=== PATIENT | female | born 1980 | race Two or more races ===

== ENCOUNTER 2024-07-24 10:23 | Outpatient (AMB) | payer MEDICAID, SELFPAY ==
[2024-07-24 10:45] VITALS: BP 143/91; PULSE 77; RESP 18; TEMP 36.4; O2SAT 97; BMI 39.2
--- NOTE | 2024-07-24 10:45 | ORTHONT_ITS ---
Vital signs 07/24/24 10:45 Height 1.65 m Height Method Stated Weight 107.076 kg Weight Measurement Method Standing Scale BMI 39.2 BP 143/91 H Blood Pressure Source Automatic Cuff Blood Pressure Location Left Upper Arm Position Sitting Respiration 18 Pulse 77 Pulse Source Monitor Temp 97.6 F Temp Source Temporal Artery Scan Pulse Oximetry (%) 97 Oxygen Delivery Method Room Air Med/Allergies Allergies & Medications Allergies No Known Drug Allergies Allergy (Verified 07/24/24 10:46) Medication Reconciliation Unobtainable 12/13/23 [History Confirmed 07/24/24] Exam Exam Patient is in no acute distress and is cooperative with the examination today. Breathing is nonlabored. In no respiratory distress. Bilateral extremities were evaluated and demonstrates sensation intact to light touch. Palpable pedal pulses are present. No significant edema is present. Bilateral hips were examined. The patient has no pain with log roll of the hips. Internal rotation to 30 degrees and external rotation to 30 degrees is painless. Negative FADIR. The left knee was examined. The left knee is in [varus] alignment. Range of motion from [0-115] degrees. Knee is stable to varus and valgus as well as AP translation with <5mm. Patient has a [negative] McMurrays. There is [no] pain with patellofemoral compression and [no] crepitus noted. The knee is [tender] to palpation [medially]. The right knee was also examined. The right knee is in [varus] alignment. Range of motion from [0-120] degrees. Knee is stable to varus and valgus as well as AP translation with <5mm. Patient has a [negative] McMurrays. There is [no] pain with patellofemoral compression and [no] crepitus noted. The knee is [tender] to palpation [medially]. X-rays were personally reviewed by me. This demonstrates massive varus deformity of the left knee. On the right knee there is varus deformity. Both knees demonstrate complete obliteration of the medial joint space and medial osteophytes. Assessment and Plan Problem List (1) Bilateral primary osteoarthritis of knee: Status: Acute (2) Bilateral knee pain: Status: Acute Plan: Patient is a 44-year-old female who is morbidly obese with complete obliteration of the bilateral knees. She has significant varus deformity. She is not an ideal candidate for total knee replacement due to her body habitus But she is continuing to lose weight. Recommend knee cortisone injections as patient would like to proceed with conservative treatment at this time. The risks and benefits of the procedure were reviewed with the patient and patient gave verbal consent to continue with the procedure. Procedure: performed by Dr. Estrada Using sterile technique the Bilateral knees were thoroughly prepped with alcoh ol, and approximately 1 cc of Kenalog 40 mg/mL and 4 cc of 1% lidocaine was injected into each knee without resistance into the medial tibial femoral joint space. The patient tolerated the procedure. Office Procedures GNS Level of Care Nursing/Assessment Patient Status: Established Patient Nursing Assessment/Reassesment: Medication Reconciliation, Update PMH in EMR and Vital Signs Coordination of Care: Complex Care and Chronic Disease 1-5, Education Complex Pt/Fam, Consent,records obtained, informed consent, Results/Orders obtained and Staff clarify orders Established Patient Charge Established Patient Point Assignment: 95 Established Patient Point Charge: EP Level 3 (80-115) MA Intake Visit Data Collection New Patient or Established: Established Patient (seen at [facility] within 3 years) Reason for Visit:: FOLLOW UP Seen by Clinical Staff ONLY (RN/MA): No Corporate Pilot Required: Yes PCP or OBGYN visit in last 3 months: Yes Hx Now: No Do You Feel Safe at Home: Yes Authorities Contacted: N/A Questionairres Past Medical History Past Medical History Have you ever been diagnosed with any of the following: Subjective Visit Visit for: follow up visit Immunization / Flu Flu Vaccine in the Last 12 Months: No Flu Vaccine Exclusion Criteria: No Exclusion Criteria History of Present Illness Chief complaint: bilateral knee osteoarthritis Lydia is a pleasant 44-year-old female with bilateral knee pain and bilateral knee arthritis. She is lost over 140 pounds. We recommend continued conservative treatment. Pain Pain level (0-10): 6 Pain duration: ALL DAY Pain location: inside (medial) Pain quality: sharp, dull and aching Pain timing: increases with activity Associated signs & symptoms: none Ambulatory data Ambulatory device: none Treatments Improvement with previous injections: No Improvement with PT: No Improvement with NSAIDS: no Review of Systems Review of Systems: All systems negative unless otherwise noted in HPI.
== END 2024-07-24 11:06 | disposition home or self-care (01) ==
LOC: HODSRG 10:23
PROVIDERS: PCP Nurse Practitioner Family; Referring Provider Nurse Practitioner Family; Supervising Provider Orthopaedic Surgery Adult Reconstructive Orthopaedic Surgery; Visit Provider Orthopaedic Surgery Adult Reconstructive Orthopaedic Surgery
DX: M17.0 Bilateral primary osteoarthritis of knee (principal); M25.562 Pain in left knee; M25.561 Pain in right knee; M21.161 Varus deformity, not elsewhere classified, right knee; E66.01 Morbid (severe) obesity due to excess calories; Z68.39 Body mass index [BMI] 39.0-39.9, adult
CPT/HCPCS: 20610; 99213; J3301; J3490; G0463

== ENCOUNTER → 2024-07-24 | Outpatient (CLI) | payer MEDICAID, SELFPAY ==
--- NOTE | 2024-07-24 | XR_ITS ---
Examination: Knee bilateral, 6 views, AP bilateral axial knees single view Technique: Knee AP, lateral, oblique each knee total 6 views, bilateral AP axial knees single view total 7 views Date and time of exam: July 16, 2024 1301 hours INDICATIONS: Bilateral knee pain years. FINDINGS: Left knee old fracture deformity medial tibial plateau Advanced left knee tricompartment osteoarthritis No acute fracture Small left knee effusion Right knee severe narrowing [id number] medial joint space Significant osteoarthritis right patellofemoral joint No fracture No patellar dislocation IMPRESSION: Left knee old fracture deformity medial tibial plateau Advanced left knee tricompartment osteoarthritis Right knee severe narrowing [id number] medial joint space Significant osteoarthritis right patellofemoral joint
== END | disposition home or self-care (01) ==
PROVIDERS: Referring Provider Orthopaedic Surgery Adult Reconstructive Orthopaedic Surgery; Visit Provider Orthopaedic Surgery Adult Reconstructive Orthopaedic Surgery
DX: M17.0 Bilateral primary osteoarthritis of knee (principal); M25.861 Other specified joint disorders, right knee; Z87.81 Personal history of (healed) traumatic fracture
CPT/HCPCS: 73564

== ENCOUNTER 2024-09-20 10:11 | Outpatient (AMB) | payer MEDICAID, SELFPAY ==
--- NOTE | 2024-09-20 10:49 | PD.ORTHCLVIS ---
Vital signs 09/20/24 10:50 Height 1.65 m Height Method Stated Weight 100.896 kg Weight Measurement Method Standing Scale BMI 37.0 BP 137/87 H Blood Pressure Source Automatic Cuff Blood Pressure Location Left Upper Arm Position Sitting Respiration 19 Pulse 78 Pulse Source Monitor Temp 97.9 F Temp Source Temporal Artery Scan Pulse Oximetry (%) 98 Oxygen Delivery Method Room Air Med/Allergies Allergies & Medications Allergies No Known Drug Allergies Allergy (Verified 09/20/24 10:50) Medication Reconciliation Unobtainable 12/13/23 [History Confirmed 09/20/24] Exam Exam Patient is in no acute distress and is cooperative with the examination today. Breathing is nonlabored. In no respiratory distress. Bilateral extremities were evaluated and demonstrates sensation intact to light touch. Palpable pedal pulses are present. No significant edema is present. Bilateral hips were examined. The patient has no pain with log roll of the hips. Internal rotation to 30 degrees and external rotation to 30 degrees is painless. Negative FADIR. The left knee was examined. The left knee is in [varus] alignment. Range of motion from [0-115] degrees. Knee is stable to varus and valgus as well as AP translation with <5mm. Patient has a [negative] McMurrays. There is [no] pain with patellofemoral compression and [no] crepitus noted. The knee is [tender] to palpation [medially]. The right knee was also examined. The right knee is in [varus] alignment. Range of motion from [0-120] degrees. Knee is stable to varus and valgus as well as AP translation with <5mm. Patient has a [negative] McMurrays. There is [no] pain with patellofemoral compression and [no] crepitus noted. The knee is [tender] to palpation [medially]. X-rays were personally reviewed by me. This demonstrates massive varus deformity of the left knee. On the right knee there is varus deformity. Both knees demonstrate complete obliteration of the medial joint space and medial osteophytes. Assessment and Plan Problem List (1) Bilateral primary osteoarthritis of knee: Status: Acute (2) Bilateral knee pain: Status: Acute Plan: Patient is a 44-year-old female who is morbidly obese with complete obliteration of the bilateral knees. She has significant varus deformity. She has lost a significant amount of weight and she has lost over 20 pounds in the last 6 weeks. She lost over 160 pounds. She continues to lose over 20 pounds a month. The patient is very frustrated that we are not doing her surgery. I discussed that she is at high risk for infection given that she is losing weight dramatically at this point. She does have extreme varus deformity and would like a revision style components with either a hinge of a semiconstrained knee. The patient does have a very poor understanding that this is extensive surgery. We recommend that she get a second opinion as she wants surgery right now. I think it is unsafe to do surgery given that she continues to lose weight rapidly. Office Procedures GNS Level of Care Nursing/Assessment Patient Status: Established Patient Nursing Assessment/Reassesment: Medication Reconciliation, Update PMH in EMR and Vital Signs Coordination of Care: Complex Care/Chronic Disease 5 or more, Education Complex Pt/Fam, Consent,records obtained, informed consent, Results/Orders obtained and Staff clarify orders Special Needs: Language special needs Established Patient Charge Established Patient Point Assignment: 105 Established Patient Point Charge: EP Level 3 (80-115) MA Intake Visit Data Collection New Patient or Established: Established Patient (seen at [facility] within 3 years) Reason for Visit:: BILATERAL KNEE INJ F/U Seen by Clinical Staff ONLY (RN/MA): No Area Attendant Required: Yes PCP or OBGYN visit in last 3 months: Yes Hx Now: No Do You Feel Safe at Home: Yes Authorities Contacted: N/A Questionairres Past Medical History Past Medical History Have you ever been diagnosed with any of the following: Respiratory Problems Smoking: No Smoking Exposure: No Subjective Visit Visit for: follow up visit, knee (BILATERAL) and injections Immunization / Flu Flu Vaccine in the Last 12 Months: No Flu Vaccine Exclusion Criteria: No Exclusion Criteria History of Present Illness Chief complaint: bilateral knee osteoarthritis Lydia is a pleasant 44-year-old female with bilateral knee pain and bilateral knee arthritis. She has lost over 160 pounds. We recommend continued conservative treatment. Pain Pain level (0-10): 10 Pain duration: ALL DAY Pain location: inside (medial), outside (lateral), anterior and posterior Pain quality: sharp, dull and aching Pain timing: night, increases with activity and stairs Associated signs & symptoms: numbness, weakness and stiffness Ambulatory data Ambulatory device: other (specify) (CRUTCH) Treatments Number of previous injections: 2 Improvement with previous injections: No Improvement with PT: No Improvement with NSAIDS: no Review of Systems Review of Systems: All systems negative unless otherwise noted in HPI.
[2024-09-20 10:50] VITALS: BP 137/87; PULSE 78; RESP 19; TEMP 36.6; O2SAT 98; BMI 37.0
== END 2024-09-20 10:56 | disposition home or self-care (01) ==
PROVIDERS: PCP Nurse Practitioner Family; Referring Provider Nurse Practitioner Family; Supervising Provider Orthopaedic Surgery Adult Reconstructive Orthopaedic Surgery; Visit Provider Orthopaedic Surgery Adult Reconstructive Orthopaedic Surgery
DX: M17.0 Bilateral primary osteoarthritis of knee (principal); M25.562 Pain in left knee; M25.561 Pain in right knee; E66.01 Morbid (severe) obesity due to excess calories; Z68.37 Body mass index [BMI] 37.0-37.9, adult; M25.862 Other specified joint disorders, left knee; M25.861 Other specified joint disorders, right knee; M21.151 Varus deformity, not elsewhere classified, right hip
CPT/HCPCS: 99213; G0463

== ENCOUNTER 2025-05-17 06:50 | Day surgery (SDC) | payer MEDICAID, SELFPAY ==
[2025-05-16 11:14] VITALS: BMI 36.9
--- NOTE | 2025-05-16 11:33 | EKG_ITS ---
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
[2025-05-16 12:20] LABS: Basophils # (Auto) 0.1 Thou/mm3 (0.0-0.2); Basophils % (Auto) 1 % (0-2.5); Eosinophils # (Auto) 0.3 Thou/mm3 (0.0-0.5); Eosinophils % (Auto) 2 % (0-10); Hematocrit 41.3 % (36.0-46.0); Hemoglobin 13.8 g/dL (12.0-16.0); Immature Granulocytes Auto 0.02 Thou/mm3 (0.00-0.00); Lymphocytes # (Auto) 2.7 Thou/mm3 (1.0-4.8); Lymphocytes % (Auto) 25 % (10-50); Mean Corpuscular HGB Conc 33.4 g/dl (31.0-37.0); Mean Corpuscular Hemoglobin 29.3 pg (25.0-35.0); Mean Corpuscular Volume 88 fL (80-100); Monocytes # (Auto) 0.6 Thou/mm3 (0.0-0.8); Monocytes % (Auto) 6 % (0-12); Neutrophils # (Auto) 7.0 Thou/mm3 (1.8-7.7); Neutrophils % (Auto) 66 % (37-80); Nucleated Red Blood Cell # 0.00 Thou/mm3 (0.00-0.00); Nucleated Red Blood Cell % 0 /100 WBC (0); Platelet Count 250 Thou/mm3 (140-440); RDW Standard Deviation 41.9 fL (36.4-46.3); Red Blood Count 4.71 Miln/mm3 (4.00-5.20); White Blood Count 10.6 Thou/mm3 (3.6-11.0)
[2025-05-16 12:25] LABS: INR 1.0 (0.9-1.3); Partial Thromboplastin Time 29.9 Seconds (22.0-36.0); Prothrombin Time 10.9 Seconds (9.0-12.2)
[2025-05-16 12:37] LABS: Alanine Aminotransferase 28 U/L (10-49); Albumin, Serum 4.5 gm/dL (3.5-5.0); Albumin/Globulin Ratio 2.3 (1.2-2.2); Alkaline Phosphatase 131 U/L (46-116); Anion Gap 10 (7-16); Aspartate Amino Transferase 24 U/L (0-34); BUN/Creatinine Ratio 16 Ratio (12-20); Bilirubin,Total 0.6 mg/dL (0.3-1.2); Blood Urea Nitrogen 11 mg/dL (9-23); Calcium 9.1 mg/dL (8.3-10.6); Calcium (Corrected) 9.1 mg/dL (8.5-10.1); Carbon Dioxide 26.0 mMol/L (20.0-31.0); Chloride 107 mMol/L (98-107); Creatinine (Component) 0.7 mg/dL (0.6-1.3); Estimated Creatinine Clearance 109.1 mL/min (>60); Globulin 2.0 gm/dL (2.3-3.5); Glucose 83 mg/dL (74-106); Osmolality,Calculated 283 (275-295); Potassium 3.8 mMol/L (3.4-5.1); Sodium 143 mMol/L (136-145); Total Protein 6.5 gm/dL (5.7-8.2); eGFR > 60 See Note
[2025-05-16 12:38] LABS: HCG,Qualitative Serum Negative
--- NOTE | 2025-05-16 15:35 | SUR.PREOP ---
Pt notified to come in at 0630 for surgery tomorrow.
[2025-05-17 06:00] VITALS: BP 105/78; PULSE 86; RESP 16; TEMP 36.5; O2SAT 99; BMI 37.0
--- NOTE | 2025-05-17 07:35 | SUR.PREOP ---
Patient expressed gratitude for prayer before their procedure.
--- NOTE | 2025-05-17 09:04 | PC.NURSE ---
Dr. Thomson explained to patient that he did not have the appropriate tool here to do the surgery. Stated he is cancelling surgery for today and will reschedule.
--- NOTE | 2025-05-17 15:51 | ESHP_ITS ---
RE: SRAVANTHI HERNANDEZ : 1980 DATE OF ADMISSION: 05/17/2025 HISTORY AND PHYSICAL: Patient came to my office on 05/16/2025 for detailed preop history and physical examination. HISTORY OF PRESENT COMPLAINT: Patient presents to me with history of pain in the right knee joint. Pain is quite bad. Range of motion is also restricted. Patient graded intensity of pain to be 8-9 out of 10. Patient is unable to walk more than 100 feet or so. Pain keeps her awake at night. Quality of life and activities of daily living is affected. X-ray reveals a severe osteoarthritic changes. Patient was given cortisone shot in the past but it did not help her. PAST MEDICAL HISTORY: Patient has history of high blood pressure. No history of diabetes mellitus, asthma, seizure, chest pain, myocardial infarction, or bleeding disorder. PAST SURGICAL HISTORY: Nil known. DRUG HISTORY: The patient is on: 1. Amlodipine. 2. Hydrocodone. FAMILY HISTORY AND SOCIAL HISTORY: Patient denies smoking, drinking. He is not working. PHYSICAL EXAMINATION: VITAL SIGNS: Rather normal-built lady. Pulse 88 per minute, blood pressure 105/76. NECK: Soft, supple, no mass felt, trachea is centrally placed. CARDIOVASCULAR: First and second heart sound normal. No murmur heard. RESPIRATORY: Bilateral vesicular breath sounds, chest clear. ABDOMINAL: Soft, no mass felt, is scaphoid. Bowel sounds present. EXTREMITIES: Right knee examination revealed 2+ swelling. There is significant varus deformity. Active range of motion 0-90 degrees of flexion. Patient walks with limp. X-ray reveals severe osteoarthritic changes with the significantly depleted medial tibial plateau. Patient was explained that she needs knee replacement. One may have to put a constrained knee, in that case patient may not have very good range of motion. However, patient wanted to proceed with surgery as pain is too much. Risks with anesthesia was explained and that includes but not limited to reaction to anesthetic agents, cardiac arrest and rarely it might be fatal. Risks with operation includes infection and if that happens patient may need further surgical procedure. Other risks include delayed healing, wound dehiscence, etcetera. No guarantee is given regarding outcome of the procedure. I also explained that the type of the implant to be used will be decided on the operating table and patient is fully aware of that. No guarantee is given regarding pain relief and/or functional outcome and/or range of motion and patient is fully aware of that. Patient is clear for surgical procedure. Surgery is booked for 05/17/2025. Appropriate lab work is done. DT: 15:31:38 TT: 15:50:00 Ref: [id number] - TID: [id number]
== END 2025-05-17 08:00 | disposition home or self-care (01) ==
LOC: S2EX 06:56
PROVIDERS: Anesthesiology; Referring Provider Orthopaedic Surgery; Visit Provider Orthopaedic Surgery
DX: M17.11 Unilateral primary osteoarthritis, right knee (principal); Z01.810 Encounter for preprocedural cardiovascular examination; Z53.8 Procedure and treatment not carried out for other reasons; M21.161 Varus deformity, not elsewhere classified, right knee
CPT/HCPCS: 36415; 80053; 84703; 85025; 85610; 85730; 86850; 86900; 86901; 86923; 93005; A4649; J0131; J0690; J1100; J1580; J1885; J2250; J2405; J2704; J2795; J3010; J3490